=== PATIENT | female | born 1990 | race Caucasian/White ===

== ENCOUNTER → 2017-08-26 11:25 | Outpatient (CLI) | payer OTHER, MEDICAID, SELFPAY ==
[2017-09-03 15:33] LABS: Informaseq SEE SEPERATE REPORT
== END ==
PROVIDERS: Family Provider Obstetrics & Gynecology; PCP Obstetrics & Gynecology; Visit Provider Obstetrics & Gynecology
DX: Z3A.30 30 weeks gestation of pregnancy (principal); Z34.92 Encounter for supervision of normal pregnancy, unspecified, second trimester
CPT/HCPCS: 36415; 81507

== ENCOUNTER → 2017-10-07 14:51 | Outpatient (CLI) | payer OTHER, MEDICAID, SELFPAY ==
[2017-10-08 13:16] LABS: Strep Grp B PCR NEG for Grp B Strep
== END ==
PROVIDERS: Family Provider Obstetrics & Gynecology; PCP Obstetrics & Gynecology; Visit Provider Obstetrics & Gynecology
DX: Z34.83 Encounter for supervision of other normal pregnancy, third trimester (principal)
CPT/HCPCS: 87653

== ENCOUNTER 2017-11-04 14:17 | Inpatient (IN) | payer OTHER, MEDICAID, SELFPAY ==
[2017-11-04 16:58] VITALS: BP 126/85
[2017-11-04 17:48] LABS: Add Manual Diff / Slide Review NO; Basophils Percent Auto 0.1 % (0-2); Eosinophils Percent Auto 0.2 % (2-4); Hemoglobin 12.4 g/dL (12.0-16.0); Lymphocytes Percent Auto 10.6 % (25-40); Mean Corpuscular HGB Conc 33.4 % (30-36); Mean Corpuscular Hemoglobin 28.5 PG (26-34); Mean Corpuscular Volume 85.3 fL (80-100); Monocytes Percent Auto 5.1 % (3-14); Neutrophils Absolute Auto 11200 /uL (3000-5900); Platelet Count 226 X10^3/uL (150-400); Red Blood Cell Count 4.34 X10^6/uL (4.0-5.2); Red Cell Distribution Width 13.3 % (11.6-14.8); White Blood Cell Count 13.4 X10^3/uL (4.5-11.0)
[2017-11-04] MEDS: ONDANSETRON 4 MG/2 ML INJ IV (18:15)
--- NOTE | 2017-11-04 20:45 | PM.OBHP.1 ---
OB HPI Date/Time Date of admission: 11/04/17 Date Patient Seen: 11/04/17 Time Patient Seen: 14:30 History of Present Illness Chief complaint: OBSERVATION : 2 Para: 1 Estimated Date of Delivery: 11/04/17 Estimated Gestational Age (weeks): 40 Narrative: Kyra Casas is a 26 year old female 2 para 1 who presented in early labor. She progressed into active labor quickly. She had spontaneous rupture of membranes. Indications Other reason(s) for admission: Active labor History of Present care: good care Dating criteria: LMP confirmed by 1st trimester US Ultrasounds: normal 1st trimester US and normal mid trimester US Obstetrical complications: none Medical complications: neurological (Tourettes syndrome) Preadmission Labs Blood type: O (+) positive -: Antibody screen: negative, GBS status: negative, HBsAG: negative, HIV: negative, HSV 1: negative, HSV 2: negative and RPR/VDLR: negative -: Chlamydia screen: not detected and Gonorrhea screen: not detected -: Rubella: immune and Varicella: immune HCT: 37.9 HCAB: negative Cell-free DNA: Normal Urine: Negative 1 hr GTT: 79 Prior (ies) History: 1 spontaneous vaginal delivery on 03/06/2016. 41 weeks. weight 7 lb 3 oz. Female. Evaluation Evaluation Baseline heart rate: 145 Variability: Moderate (11-25) monitor accelerations: Present monitor decelerations: Absent Contraction Frequency (minutes): 3 Uterine Contraction Intensity: Moderate Category of Tracing: I Cervical dilation (cm): 3 Cervical effacement (%): 80 station: -2 Laboratory results: Laboratory Tests 11/04/17 11/04/17 16:20 16:20 WBC 13.4 H RBC 4.34 Hgb 12.4 Hct 37.0 MCV 85.3 MCH 28.5 MCHC 33.4 RDW 13.3 Plt Count 226 Neut % (Auto) 84.0 H Lymph % (Auto) 10.6 L [place] % (Auto) 5.1 Eos % (Auto) 0.2 L Baso % (Auto) 0.1 Neut # (Auto) 70731 H Blood Type O Positive Antibody Screen Negative PFSH Social History Smoking Status: Never smoker Meds Home Medications Medication Instructions Recorded Confirmed Type Breast Pump - Double Electric 1 dev TOPICAL PRN PRN 11/04/17 11/04/17 History Allergies Allergy/AdvReac Type Severity Reaction Status Date / Time No Known Drug Allergies Allergy Verified 11/04/17 17:39 Exam Vital Signs (past 8 hours): - 11/04/17 16:58 Blood Pressure 126/85 H Narrative Exam Narrative: Generally: A well-developed, well-nourished white female, no acute distress Lungs: Clear to auscultation bilaterally Cardiovascular: Regular rate and rhythm Fundal height: 39 cm Estimated weight 7 lb Extremities: No edema, negative Homans Objective Labs Result Diagrams: 11/04/17 16:20 Labs: Laboratory Results - last 24 hr 11/04/17 11/04/17 16:20 16:20 WBC 13.4 H RBC 4.34 Hgb 12.4 Hct 37.0 MCV 85.3 MCH 28.5 MCHC 33.4 RDW 13.3 Plt Count 226 Neut % (Auto) 84.0 H Lymph % (Auto) 10.6 L [place] % (Auto) 5.1 Eos % (Auto) 0.2 L Baso % (Auto) 0.1 Neut # (Auto) 94467 H Blood Type O Positive Antibody Screen Negative Assessment and Plan (1) 40 weeks gestation of : Current visit: Yes Status: Acute Assessment: 26-year-old 2 para 1 at 40 weeks gestation in early to active labor Plan: Expected management to spontaneous vaginal delivery
[2017-11-04] MEDS: LACTATED RINGERS 1,000 ML 100 ML IV (20:57)
--- NOTE | 2017-11-04 22:06 | PM.OBPRVD ---
Events: Meconium Stained Fluid Delivery date: 11/04/17 Intrapartal events: None Delivery augmentation: pitocin Delivery monitor: external FHT and external uterine Route of delivery: Episiotomy description: None Laceration description: Superficial Delivery repair: chromic Estimated blood loss (mL): 150 Anesthesia type: Epidural Complications: None Narrative: Patient complete and pushed with 4 contractions. At 9:52 p.m., a live female infant delivered spontaneously over an intact perineum. The remainder of the body delivered without difficulty and the was placed on mom's abdomen. After the cord stopped pulsing the cord was double clamped and cut. Cord bloods were obtained. The placenta delivered intact with a 3 vessel cord at 9:57 p.m. Fundus massaged to firm. Pitocin given in the IV fluids. Estimated blood loss 150 cc. Superficial right labial and midline vaginal laceration repaired with 3 0 chromic. Hemostasis achieved. Apgars 8 at 1 min and 9 at 5 min. . Epidural analgesia. Mom and stable to recovery. Plan for aftercare: To routine care
[2017-11-05] MEDS: IBUPROFEN 600 MG TABLET PO ×2 (06:20→12:21)
[2017-11-05 06:35] LABS: Hematocrit 34.1 % (36-46); Hemoglobin 11.4 g/dL (12.0-16.0)
[2017-11-05 10:51] VITALS: BP 128/75; PULSE 84; RESP 16; TEMP 36.6
[2017-11-05] MEDS: PRENATAL VIT,CALC/IRON/FOLIC 1 TABLET 1 TAB PO (12:21)
[2017-11-05] MEDS: DOCUSATE 250 MG CAPSULE PO (12:22)
== END 2017-11-05 18:20 | disposition home or self-care (01) | DRG 775 ==
PROVIDERS: Admitting Provider Obstetrics & Gynecology; Family Provider Obstetrics & Gynecology; PCP Obstetrics & Gynecology; Visit Provider Obstetrics & Gynecology
DX: O77.0 Labor and delivery complicated by meconium in amniotic fluid (principal); Z3A.40 40 weeks gestation of pregnancy; Z37.0 Single live birth; O70.0 First degree perineal laceration during delivery
CPT/HCPCS: 1967; 59050; 59400; 85014; 85018; 85025; 86850; 86900; 86901; G0379; J2405